=== PATIENT | female | born 1955 | race Hispanic/Latino ===

== ENCOUNTER 2022-04-13 15:30 | Emergency (ER) | payer MEDICARE, OTHER ==
[~2022-04-13] VITALS: Ht 149.9 cm; Wt 79.4 kg
[2022-04-13 16:52] LABS: BASOPHILS % (AUTO) 0.2 % (0.0-5.0); EOSINOPHILS % (AUTO) 0.3 % (0.0-8.0); HEMATOCRIT 34.3 % (36-48); LYMPHOCYTES % (AUTO) 11.5 % (21.0-51.0); MEAN CORPUSCULAR HEMOGLOBIN 29.3 pg (27.0-33.0); MEAN CORPUSCULAR HGB CONC 32.9 g/dL (32.0-36.0); MEAN CORPUSCULAR VOLUME 88.9 fL (79-99); NEUTROPHILS % (AUTO) 82.2 % (40.0-77.0); PLATELET COUNT (AUTO) 287 K/uL (130-400); RED BLOOD CELL COUNT(AUTO) 3.86 MIL/uL (4.00-5.50); RED CELL DISTRIBUTION WIDTH 13.2 % (11.0-15.5); WHITE BLOOD COUNT (AUTO) 12.5 K/uL (4.8-10.8)
[2022-04-13 17:00] LABS: CREATININE 1.4 mg/dL (0.5-1.5); POTASSIUM 4.2 mmol/L (3.5-5.1)
[2022-04-13] MEDS ORDERED: 0.9%NACL 1000ML 1,000 ML IV ONE (17:00)
[2022-04-13 17:12] LABS: ALBUMIN 3.7 g/dL (3.5-5.0); TOTAL PROTEIN, SERUM 7.4 g/dL (6.0-8.3)
[2022-04-13 18:05] LABS: APPEARANCE,URINE CLOUDY (CLEAR); BILIRUBIN,URINE NEGATIVE (NEGATIVE); COLOR,URINE DARK-YELLOW (YELLOW); GLUCOSE, URINE (UA) NEGATIVE (NEGATIVE); KETONES,URINE NEGATIVE (NEGATIVE); LEUKOCYTE ESTERASE ,URINE NEGATIVE Leu/uL (NEGATIVE); NITRATE,URINE NEGATIVE (NEGATIVE); OCCULT BLOOD,URINE NEGATIVE (NEGATIVE); PROTEIN,URINE 50 mg/dL (NEGATIVE); UROBILINOGEN,URINE 0.2 mg/dL (0.2-1.0)
[2022-04-13 18:07] LABS: BACTERIA,URINE RARE /HPF (None Seen); MUCUS,URINE MOD LPF (None Seen); SQUAMOUS EPITHELIAL CELL,UR RARE /HPF (0-2)
[2022-04-13 18:10] VITALS: BP 112/57
== END 2022-04-13 18:38 | disposition home or self-care (01) ==
LOC: EDH 15:30
DX: R55 Syncope and collapse (principal); E11.9 Type 2 diabetes mellitus without complications; E78.00 Pure hypercholesterolemia, unspecified; I10 Essential (primary) hypertension; M19.90 Unspecified osteoarthritis, unspecified site
CPT/HCPCS: 99285; 70450; 96360; 71045; 84484; 80053; 85025; 81001; 36415; 72125; 93005; J7030

== ENCOUNTER → 2022-08-04 | Outpatient (CLI) | payer MEDICARE | END | disposition home or self-care (01) | LOC: RAH 13:34 | PROVIDERS: ATTEND Internal Medicine | DX: E04.2 Nontoxic multinodular goiter (principal); E04.9 Nontoxic goiter, unspecified; E05.90 Thyrotoxicosis, unspecified without thyrotoxic crisis or storm; R63.4 Abnormal weight loss | CPT/HCPCS: 76536 ==

== ENCOUNTER → 2023-02-05 | Outpatient (CLI) | payer MEDICARE | END | disposition home or self-care (01) | LOC: RAH 11:11 | PROVIDERS: ATTEND Internal Medicine | DX: E04.2 Nontoxic multinodular goiter (principal) | CPT/HCPCS: 76536 ==

== ENCOUNTER → 2023-08-31 | Outpatient (CLI) | payer MEDICARE | END | disposition home or self-care (01) | LOC: RAH 14:05 | PROVIDERS: ATTEND Internal Medicine | DX: E05.20 Thyrotoxicosis with toxic multinodular goiter without thyrotoxic crisis or storm (principal) | CPT/HCPCS: 76536 ==

== ENCOUNTER → 2024-02-13 | Outpatient (CLI) | payer MEDICARE ==
--- NOTE | 2024-02-13 13:37 | HMCIMG ---
Exam: CERVICAL SPINE 2 VIEWS REASON: PAIN IN UNSPECIFIED JOINT TECHNIQUE: 3 views were obtained. FINDINGS: There are normal appearing vertebral bodies. There is moderate interspace narrowing at C5-6 and C6-7. Remaining interspaces are preserved. There are also moderate facet degenerative changes C3-4 through C6-7. The body alignment is normal. There are no visible fractures. Soft tissues appear unremarkable. IMPRESSION: 1. Moderate cervical degenerative change.
--- NOTE | 2024-02-13 13:39 | HMCIMG ---
SHOULDER COMP 2+VWS LT REASON: PAIN IN UNSPECIFIED JOINT TECHNIQUE: 3 views were obtained. FINDINGS: There is no evidence of fracture or dislocation. There are AC joint degenerative changes. There are 2 subacromial osteophytes.. The soft tissues appear unremarkable. There is no evidence of a radiopaque foreign body. IMPRESSION: 1. Subacromial osteophytes which can result in impingement in the appropriate clinical setting.
--- NOTE | 2024-02-13 13:42 | HMCIMG ---
HIP BILAT 2VW REASON: PAIN IN UNSPECIFIED JOINT COMPARISON: None TECHNIQUE: Views are obtained of the pelvis and both hips. FINDINGS: Bones of the pelvis appear normal. There are no fractures. SI joints appear unremarkable. Hip joint spaces are preserved. Proximal femurs appear normal. Surrounding soft tissues are unremarkable. IMPRESSION: 1. Normal views of the pelvis and both hips.
--- NOTE | 2024-02-13 13:43 | HMCIMG ---
EXAM: LUMBAR SPINE 2-3VWS REASON: PAIN IN UNSPECIFIED JOINT. COMPARISON: None. TECHNIQUE: 3 views of the lumbar spine were obtained. FINDINGS: There are normal appearing vertebral bodies. Interspace heights are preserved. There are moderate to marked degenerative changes posterior facets at L4-5 and L5-S1. Bones appear otherwise normal. There is been a previous cholecystectomy. Soft tissues are otherwise unremarkable. Soft tissues appear unremarkable. IMPRESSION: 1. Moderate to marked degenerative change in the posterior facets at L4-5 and L5-S1.
== END | disposition home or self-care (01) ==
LOC: RAH 11:56
PROVIDERS: ATTEND Internal Medicine
DX: M47.817 Spondylosis without myelopathy or radiculopathy, lumbosacral region (principal); M47.812 Spondylosis without myelopathy or radiculopathy, cervical region; M19.012 Primary osteoarthritis, left shoulder; M25.712 Osteophyte, left shoulder; M48.02 Spinal stenosis, cervical region; M54.50 Low back pain, unspecified; M25.552 Pain in left hip; M25.551 Pain in right hip; M25.512 Pain in left shoulder; M54.2 Cervicalgia; Z90.49 Acquired absence of other specified parts of digestive tract
CPT/HCPCS: 72040; 72100; 73030; 73521